=== PATIENT | male | born 1950 | race African-American/Black ===

== ENCOUNTER 2019-10-07 15:53 | Inpatient (IN) | payer BC ==
[~2019-10-07] VITALS: Ht 175.3 cm; Wt 104.3 kg
[2019-10-07] MEDS ORDERED: KETOROLAC 30MG/ML VIAL IV STA (16:26)
[2019-10-07 17:13] LABS: BASOPHILS % 0.5 % (0.0-2.0); EOSINOPHILS % 1.6 % (0.0-5.0); HEMATOCRIT. 50.2 % (42.0-52.0); HEMOGLOBIN. 16.6 g/dL (14.0-18.0); LYMPHOCYTES % 28.6 % (20.0-50.0); MEAN CORPUSCULAR HEMOGLOBIN 26.8 pg (28.0-32.0); MEAN CORPUSCULAR VOLUME 81.2 fL (80.0-94.0); MEAN PLATELET VOLUME 8.9 fl (7.4-10.4); MONOCYTES % 14.9 % (2.0-8.0); NEUTROPHILS % 54.4 % (40.0-76.0); PLATELET 184 x1000/uL (130-400); RED BLOOD CELL COUNT 6.19 mill/uL (4.7-6.1); RED CELL DISTRIBUTION WIDTH 15.5 % (11.6-14.6)
[2019-10-07 17:20] LABS: CHLORIDE 107 mEq/L (98-107)
[2019-10-07] MEDS ORDERED: SODIUM CHLORIDE 0.9% 1,000 ML IV ONE (18:41)
[2019-10-07] MEDS ORDERED: MORPHINE SULFATE 2 MG/ML CPJ (NOT FOR IM USE) IV ONE (18:45)
[2019-10-08] VITALS (7 sets, daily range): BP systolic 114–143; BP diastolic 73–89
[2019-10-08] MEDS ORDERED: ONDANSETRON HCL 4MG/2ML INJ IV PRN (00:30)
[2019-10-08] MEDS ORDERED: MORPHINE SULFATE 2 MG/ML CPJ (NOT FOR IM USE) IV PRN (00:30)
[2019-10-08] MEDS: DEXT 5%/0.9% NACL KCL 20MEQ/L 1,000 ML IV SCH ×3 (03:13→17:27)
[2019-10-08 06:46] LABS: CHLORIDE 112 mEq/L (98-107)
[2019-10-08 06:48] LABS: BASOPHILS % 0.3 % (0.0-2.0); EOSINOPHILS % 2.9 % (0.0-5.0); HEMATOCRIT. 43.1 % (42.0-52.0); HEMOGLOBIN. 14.5 g/dL (14.0-18.0); LYMPHOCYTES % 30.6 % (20.0-50.0); MEAN CORPUSCULAR HEMOGLOBIN 27.2 pg (28.0-32.0); MEAN CORPUSCULAR VOLUME 80.9 fL (80.0-94.0); MONOCYTES % 12.9 % (2.0-8.0); NEUTROPHILS % 53.3 % (40.0-76.0); PLATELET 166 x1000/uL (130-400); RED BLOOD CELL COUNT 5.32 mill/uL (4.7-6.1); RED CELL DISTRIBUTION WIDTH 15.2 % (11.6-14.6)
[2019-10-08] MEDS: PANTOPRAZOLE SODIUM 40 MG/VIAL IV SCH (08:49)
[2019-10-09] VITALS: BP 117/76
[2019-10-09] MEDS: DEXT 5%/0.9% NACL KCL 20MEQ/L 1,000 ML IV SCH ×3 (02:10→17:46)
[2019-10-09 04:00] VITALS: BP 108/70
[2019-10-09 06:55] LABS: BASOPHILS % 0.4 % (0.0-2.0); EOSINOPHILS % 3.3 % (0.0-5.0); HEMATOCRIT. 44.5 % (42.0-52.0); HEMOGLOBIN. 14.6 g/dL (14.0-18.0); MEAN CORPUSCULAR HEMOGLOBIN 26.7 pg (28.0-32.0); MEAN CORPUSCULAR VOLUME 81.1 fL (80.0-94.0); MEAN PLATELET VOLUME 8.8 fl (7.4-10.4); MONOCYTES % 13.9 % (2.0-8.0); NEUTROPHILS % 52.4 % (40.0-76.0); PLATELET 177 x1000/uL (130-400); RED BLOOD CELL COUNT 5.48 mill/uL (4.7-6.1); RED CELL DISTRIBUTION WIDTH 15.4 % (11.6-14.6)
[2019-10-09 08:00] VITALS: BP_SYST 115; BP_SYST 123; BP_DIAS 80; BP_DIAS 88
[2019-10-09] MEDS: PANTOPRAZOLE SODIUM 40 MG/VIAL IV SCH (08:57)
[2019-10-09 12:00] VITALS: BP_SYST 127; BP_SYST 133; BP_DIAS 78; BP_DIAS 84
[2019-10-09 16:00] VITALS: BP_SYST 124; BP_SYST 144; BP_DIAS 82; BP_DIAS 91
[2019-10-09 20:00] VITALS: BP 136/88
[2019-10-10] VITALS: BP 133/67
[2019-10-10] MEDS: DEXT 5%/0.9% NACL KCL 20MEQ/L 1,000 ML IV SCH (02:00)
[2019-10-10 04:00] VITALS: BP 133/79
[2019-10-10 06:11] LABS: CHLORIDE 115 mEq/L (98-107)
[2019-10-10 06:20] LABS: BASOPHILS % 0.5 % (0.0-2.0); EOSINOPHILS % 3.7 % (0.0-5.0); HEMATOCRIT. 43.8 % (42.0-52.0); HEMOGLOBIN. 14.5 g/dL (14.0-18.0); LYMPHOCYTES % 36.4 % (20.0-50.0); MEAN CORPUSCULAR HEMOGLOBIN 26.9 pg (28.0-32.0); MEAN CORPUSCULAR VOLUME 81.4 fL (80.0-94.0); MEAN PLATELET VOLUME 9.1 fl (7.4-10.4); MONOCYTES % 12.6 % (2.0-8.0); NEUTROPHILS % 46.8 % (40.0-76.0); PLATELET 179 x1000/uL (130-400); RED BLOOD CELL COUNT 5.37 mill/uL (4.7-6.1); RED CELL DISTRIBUTION WIDTH 15.5 % (11.6-14.6)
[2019-10-10 08:00] VITALS: BP 170/93
[2019-10-10] MEDS: PANTOPRAZOLE SODIUM 40 MG/VIAL IV SCH (09:28)
[2019-10-10 12:00] VITALS: BP 144/94
[2019-10-10 14:26] VITALS: BP 144/94
== END 2019-10-10 15:28 | disposition home or self-care (01) | DRG 388 ==
LOC: ER 15:53 → EDBEDREQSVC 20:49 → ENRESERV 21:03 → 6EST 22:50
PROVIDERS: ADMIT Internal Medicine; ATTEND Nurse Practitioner
DX: K56.600 Partial intestinal obstruction, unspecified as to cause (principal); N17.0 Acute kidney failure with tubular necrosis; E66.9 Obesity, unspecified; F17.210 Nicotine dependence, cigarettes, uncomplicated; K42.9 Umbilical hernia without obstruction or gangrene; K76.0 Fatty (change of) liver, not elsewhere classified; K57.30 Diverticulosis of large intestine without perforation or abscess without bleeding; Z79.899 Other long term (current) drug therapy; Z68.34 Body mass index [BMI] 34.0-34.9, adult
CPT/HCPCS: 36415; 71045; 74018; 74176; 80048; 80053; 85025; C9113; J1885; J2270; J7030